=== PATIENT | male | born 1945 | race Caucasian/White ===

== ENCOUNTER 2023-12-11 22:37 | Inpatient (IN) | payer OTHER, MEDICARE ==
[2023-12-11] MEDS: Albuterol/Ipratropium 3.0-0.5 MG/3 ML Neb Soln NEB ONE (23:09)
[2023-12-11] MEDS: cefTRIAXone 2 GM Vial IVPUSH ONE (23:17)
[2023-12-11 23:18] LABS: HEMATOCRIT 27.1 % (38.3-50.1); HEMOGLOBIN 8.3 g/dL (12.9-17.7); MEAN CORPUSCULAR HEMOGLOBIN 22.7 pg (27.0-33.3); MEAN CORPUSCULAR HGB CONC 30.5 g/dL (28.7-35.3); MEAN CORPUSCULAR VOLUME 74.4 fL (80.8-98.7); MEAN PLATELET VOLUME 8.4 fL (6.7-11.0); PLATELET COUNT,PLT 268 x10(3)uL (117-477); RED BLOOD CELL COUNT 3.65 x10(6)uL (3.90-5.90); WHITE BLOOD CELL COUNT,WBC 3.1 x10-3/uL (3.2-10.1)
[2023-12-11 23:28] LABS: A/G RATIO 0.5; ALANINE AMINOTRANSFERASE,ALT 10 U/L (12-36); ALBUMIN 2.7 g/dL (3.2-4.6); ALKALINE PHOSPHATASE 93 IU/L (56-112); ASPARTATE AMNIOTRANSFERASE,AST 20 IU/L (5-25); BILIRUBIN TOTAL 0.9 mg/dL (0.1-1.3); BLOOD UREA NITROGEN,BUN 71 mg/dL (7-18); BUN/CREATININE RATIO 25.4 (9-20); CALCIUM 8.9 mg/dL (8.6-10.2); CARBON DIOXIDE,CO2 33 mmol/L (21-32); CHLORIDE,CL 105 mmol/L (100-110); ESTIMATED GFR 23 mL/min (>60); GLUCOSE RANDOM 160 mg/dL (80-116); POTASSIUM,K 4.5 mmol/L (3.5-5.3); PROTEIN TOTAL,TP 7.7 g/dL (6.0-8.0); SODIUM,NA 146 mmol/L (135-145)
[2023-12-11 23:32] LABS: LACTIC ACID 1.5 mmol/L (0.4-2.0)
[2023-12-11 23:41] LABS: CREATININE 2.8 mg/dL (0.70-1.30)
[2023-12-11 23:42] LABS: C-REACTIVE PROTEIN 9.66 mg/dL (<0.50)
[2023-12-11 23:47] LABS: INFLUENZA A NAA POSITIVE (NEGATIVE); INFLUENZA B NAA NEGATIVE (NEGATIVE); RESPIRATORY SYNCYTIAL VIR NAA NEGATIVE (NEGATIVE)
[2023-12-11 23:50] LABS: BAND PERCENT MAN 4 % (0-6); BASOPHILS PERCENT MAN 1 % (0-2); LYMPHOCYTES PERCENT MAN 21 % (13-37); MONOCYTES PERCENT MAN 17 % (4-12); SEG NEUTROPHILS PERCENT MAN 57 % (46-82)
[2023-12-11] MEDS: Furosemide 20 MG/2 ML VIAL IVPUSH ONE (23:50)
[2023-12-11 23:51] LABS: CORONAVIRUS COVID-19 NAA NEGATIVE (NEGATIVE)
[2023-12-12] MEDS ORDERED: Acetaminophen 325 MG Tab PO PRN (00:08)
[2023-12-12 00:34] LABS: BILIRUBIN,URINE NEGATIVE (NEGATIVE); GLUCOSE,URINE >1000 mg/dL (NORMAL); KETONES,URINE NEGATIVE (NEGATIVE); LEUKOCYTE ESTERASE,URINE NEGATIVE (NEGATIVE); NITRITE,URINE NEGATIVE (NEGATIVE); OCCULT BLOOD,URINE NEGATIVE (NEGATIVE); PROTEIN,URINE TRACE mg/dL (NEGATIVE); UROBILINOGEN,URINE NORMAL (NEGATIVE)
[2023-12-12 00:44] LABS: APPEARANCE,URINE CLEAR (CLEAR); BACTERIA,URINE FEW (NS); COLOR,URINE YELLOW (YELLOW); RBC,URINE 0-5 (0-5); SQUAMOUS EPITHELIAL CELLS,UR OCCASIONAL (NS,R,O); WBC,URINE 0-5 (0-5)
[2023-12-12] MEDS: Enoxaparin 40 MG/0.4 ML Syringe SUBCUT SCH (00:56)
[2023-12-12] MEDS: Oseltamivir 75 MG Cap PO ONE (00:56)
[2023-12-12] MEDS: Enoxaparin 30 MG/0.3 ML Syringe SUBCUT SCH (03:44)
[2023-12-12] MEDS: Oseltamivir 75 MG Cap PO SCH (03:44)
[2023-12-12] MEDS: Albuterol/Ipratropium 3.0-0.5 MG/3 ML Neb Soln NEB SCH (06:35)
[2023-12-12 06:47] LABS: HEMATOCRIT 24.9 % (38.3-50.1); HEMOGLOBIN 7.7 g/dL (12.9-17.7); MEAN CORPUSCULAR HGB CONC 30.7 g/dL (28.7-35.3); MEAN CORPUSCULAR VOLUME 74.8 fL (80.8-98.7); MEAN PLATELET VOLUME 7.8 fL (6.7-11.0); PLATELET COUNT,PLT 218 x10(3)uL (117-477); RED BLOOD CELL COUNT 3.33 x10(6)uL (3.90-5.90); RED CELL DISTRIBUTION WIDTH 19.1 % (12.4-15.0); WHITE BLOOD CELL COUNT,WBC 2.5 x10-3/uL (3.2-10.1)
[2023-12-12 07:04] LABS: A/G RATIO 0.5; ALANINE AMINOTRANSFERASE,ALT 12 U/L (12-36); ALBUMIN 2.4 g/dL (3.2-4.6); ALKALINE PHOSPHATASE 84 IU/L (56-112); ASPARTATE AMNIOTRANSFERASE,AST 24 IU/L (5-25); BILIRUBIN TOTAL 0.5 mg/dL (0.1-1.3); BLOOD UREA NITROGEN,BUN 73 mg/dL (7-18); BUN/CREATININE RATIO 26.1 (9-20); CALCIUM 8.5 mg/dL (8.6-10.2); CARBON DIOXIDE,CO2 35 mmol/L (21-32); CHLORIDE,CL 107 mmol/L (100-110); EST CRCL DRUG DOSING (CG) 23.53 mL/min; ESTIMATED GFR 23 mL/min (>60); GLUCOSE RANDOM 159 mg/dL (80-116); MAGNESIUM 2.8 mg/dL (1.8-2.5); POTASSIUM,K 4.2 mmol/L (3.5-5.3); SODIUM,NA 148 mmol/L (135-145)
[2023-12-12 07:06] LABS: CREATININE 2.8 mg/dL (0.70-1.30)
[2023-12-12 07:27] LABS: LYMPHOCYTES PERCENT MAN 18 % (13-37); MONOCYTES PERCENT MAN 23 % (4-12); SEG NEUTROPHILS PERCENT MAN 59 % (46-82)
[2023-12-12 07:28] LABS: HYPOCHROMASIA MODERATE
[2023-12-12 07:30] LABS: POIKILOCYTOSIS MODERATE
[2023-12-12 07:31] LABS: ANISOCYTOSIS MODERATE; OVALOCYTES MODERATE
[2023-12-12 07:32] LABS: MICROCYTOSIS MODERATE
[2023-12-12] MEDS ORDERED: Oseltamivir 75 MG Cap PO SCH (09:00)
[2023-12-12] MEDS: Oseltamivir 30 MG Cap PO SCH (09:50)
[2023-12-12] MEDS ORDERED: cefTRIAXone 1 GM in Sodium Chloride 0.9% 50 ML IV SCH (10:15)
[2023-12-12] MEDS: Metoprolol Succinate 100 MG Tab.ER PO SCH (10:22)
[2023-12-12] MEDS: Potassium Chloride 10 MEQ Tab.ER PO SCH (10:22)
[2023-12-12] MEDS: Pantoprazole 40 MG Tab.CR PO SCH (10:23)
[2023-12-12] MEDS: Furosemide 100 MG/10 ML SDV IVPUSH ONE (10:23)
[2023-12-12] MEDS: Sodium Chloride 0.9% 10 ML Syringe FLUSH PRN (10:26)
[2023-12-12] MEDS: cefTRIAXone 1 GM Vial IVPUSH SCH (11:21)
[2023-12-12] MEDS: Azithromycin 500 MG in Sodium Chloride 0.9% 250 ML IV SCH (11:21)
[2023-12-12] MEDS: Apixaban 5 MG Tab PO SCH (11:35)
[2023-12-12] MEDS ORDERED: metFORMIN 500 MG Tab PO SCH (18:00)
[2023-12-12] MEDS: Torsemide 20 MG Tab PO ONE (19:02)
[2023-12-13 07:06] LABS: MEAN CORPUSCULAR HEMOGLOBIN 22.9 pg (27.0-33.3); MEAN CORPUSCULAR HGB CONC 30.6 g/dL (28.7-35.3); MEAN CORPUSCULAR VOLUME 74.8 fL (80.8-98.7); MEAN PLATELET VOLUME 8.1 fL (6.7-11.0); PLATELET COUNT,PLT 244 x10(3)uL (117-477); RED BLOOD CELL COUNT 3.47 x10(6)uL (3.90-5.90); RED CELL DISTRIBUTION WIDTH 19.7 % (12.4-15.0); WHITE BLOOD CELL COUNT,WBC 2.5 x10-3/uL (3.2-10.1)
[2023-12-13 07:14] LABS: A/G RATIO 0.5; ALANINE AMINOTRANSFERASE,ALT 13 U/L (12-36); ALBUMIN 2.3 g/dL (3.2-4.6); ALKALINE PHOSPHATASE 87 IU/L (56-112); ASPARTATE AMNIOTRANSFERASE,AST 28 IU/L (5-25); BILIRUBIN TOTAL 0.3 mg/dL (0.1-1.3); BLOOD UREA NITROGEN,BUN 70 mg/dL (7-18); BUN/CREATININE RATIO 25.9 (9-20); CALCIUM 8.6 mg/dL (8.6-10.2); CARBON DIOXIDE,CO2 35 mmol/L (21-32); CHLORIDE,CL 106 mmol/L (100-110); ESTIMATED GFR 24 mL/min (>60); GLUCOSE RANDOM 147 mg/dL (80-116); PROTEIN TOTAL,TP 7.1 g/dL (6.0-8.0); SODIUM,NA 147 mmol/L (135-145)
[2023-12-13 07:23] LABS: CREATININE 2.7 mg/dL (0.70-1.30)
[2023-12-13 07:36] LABS: ANISOCYTOSIS MODERATE; BAND PERCENT MAN 2 % (0-6); EOSINOPHILS PERCENT MAN 2 % (0-5); HYPOCHROMASIA MODERATE; LYMPHOCYTES PERCENT MAN 18 % (13-37); MICROCYTOSIS MODERATE; MONOCYTES PERCENT MAN 23 % (4-12); POIKILOCYTOSIS MODERATE; SEG NEUTROPHILS PERCENT MAN 55 % (46-82)
[2023-12-13 07:37] LABS: OVALOCYTES FEW
[2023-12-13] MEDS: Ketorolac 10 MG Tab PO ONE (09:37)
[2023-12-13] MEDS: Saccharomyces Boulardii (Probiotic) 250 MG Cap PO SCH (09:49)
[2023-12-13] MEDS ORDERED: Ondansetron 4 MG Tab.DIS PO PRN (12:14)
[2023-12-13] MEDS ORDERED: Metoclopramide 5 MG Tab PO PRN (12:24)
[2023-12-13] MEDS: Torsemide 20 MG Tab PO SCH (14:57)
[2023-12-14 07:43] LABS: HEMATOCRIT 26.6 % (38.3-50.1); HEMOGLOBIN 8.1 g/dL (12.9-17.7); MEAN CORPUSCULAR HEMOGLOBIN 22.8 pg (27.0-33.3); MEAN CORPUSCULAR HGB CONC 30.2 g/dL (28.7-35.3); MEAN CORPUSCULAR VOLUME 75.3 fL (80.8-98.7); MEAN PLATELET VOLUME 7.9 fL (6.7-11.0); PLATELET COUNT,PLT 212 x10(3)uL (117-477); RED BLOOD CELL COUNT 3.54 x10(6)uL (3.90-5.90); RED CELL DISTRIBUTION WIDTH 19.7 % (12.4-15.0); WHITE BLOOD CELL COUNT,WBC 2.3 x10-3/uL (3.2-10.1)
[2023-12-14 07:49] LABS: BLOOD UREA NITROGEN,BUN 70 mg/dL (7-18); CALCIUM 8.4 mg/dL (8.6-10.2); CARBON DIOXIDE,CO2 36 mmol/L (21-32); CHLORIDE,CL 106 mmol/L (100-110); CREATININE 2.5 mg/dL (0.70-1.30); EST CRCL DRUG DOSING (CG) 26.36 mL/min; ESTIMATED GFR 26 mL/min (>60); GLUCOSE RANDOM 151 mg/dL (80-116); POTASSIUM,K 3.8 mmol/L (3.5-5.3); SODIUM,NA 146 mmol/L (135-145)
[2023-12-14 07:56] LABS: ANISOCYTOSIS FEW; EOSINOPHILS PERCENT MAN 5 % (0-5); HYPOCHROMASIA MODERATE; LYMPHOCYTES PERCENT MAN 24 % (13-37); MICROCYTOSIS FEW; MONOCYTES PERCENT MAN 21 % (4-12); OVALOCYTES FEW; POIKILOCYTOSIS MODERATE; SEG NEUTROPHILS PERCENT MAN 50 % (46-82)
[2023-12-14] MEDS: Furosemide 40 MG/4 ML VIAL IVPUSH SCH (12:54)
[2023-12-15] MEDS: Furosemide 40 MG/4 ML VIAL IVPUSH SCH (08:59)
[2023-12-15] MEDS ORDERED: Furosemide 100 MG/10 ML SDV IVPUSH ONE (09:15)
[2023-12-15] MEDS: Furosemide 20 MG/2 ML VIAL IVPUSH ONE (09:22)
== END 2023-12-15 11:30 | DRG 194 ==
LOC: FB.ED 22:37 → FB.MS 12-12 00:16
PROVIDERS: ADMIT Family Medicine; ATTEND Family Medicine
DX: J10.00 Influenza due to other identified influenza virus with unspecified type of pneumonia (principal); L97.422 Non-pressure chronic ulcer of left heel and midfoot with fat layer exposed; Z51.5 Encounter for palliative care; Z66 Do not resuscitate; E11.22 Type 2 diabetes mellitus with diabetic chronic kidney disease; E11.621 Type 2 diabetes mellitus with foot ulcer; N18.9 Chronic kidney disease, unspecified; I50.9 Heart failure, unspecified; I87.2 Venous insufficiency (chronic) (peripheral); I48.91 Unspecified atrial fibrillation; E11.620 Type 2 diabetes mellitus with diabetic dermatitis; Z88.8 Allergy status to other drugs, medicaments and biological substances; Z79.01 Long term (current) use of anticoagulants; Z79.84 Long term (current) use of oral hypoglycemic drugs; Z79.899 Other long term (current) drug therapy
CPT/HCPCS: 0241U; 36415; 51702; 71045; 71046; 80048; 80053; 81001; 82947; 83605; 83735; 83880; 85025; 86140; 87040; 93005; 93010; 94640; 96374; 96375; 97161-GP; 97165-GO; 99223; 99232; 99238; 99285; 99285-25; A9270-GY; J0456; J0696; J1650; J1940; J3490; J7050; J7620